=== PATIENT | female | born 1990 | race African-American/Black ===

== ENCOUNTER 2020-04-24 17:11 | Outpatient (CLI) | payer OTHER, SELFPAY ==
--- NOTE | ~2020-04-24 | US_ITS ---
EXAMINATION: US pelvic complete w TV DATE: 04/24/2020 17:41 INDICATION: Pelvic pain Comparison:No prior studies for comparison. TECHNIQUE: Multiple transabdominal and endovaginal sonographic images of the pelvis performed. FINDINGS: The uterus measures 10.7 x 4.2 x 6.3 cm. The endometrial complex measures 12 mm. The right ovary measures 3.9 x 2.5 x 2.4 cm and the left ovary measures 5.2 x 2.5 x 3.6 cm. There ar e small follicles in each ovary. Normal doppler signal in both ovaries. There is no free fluid in the pelvis. There are no abnormal masses seen on either side. IMPRESSION: 1. Enlarged uterus with endometrial thickening measuring 12 mm. Reviewed, dictated and finalized at location A. PRESS OPERATOR
== END 2020-04-24 17:12 | disposition home or self-care (01) ==
PROVIDERS: Visit Provider Student in an Organized Health Care Education/Training Program
DX: R10.2 Pelvic and perineal pain (principal)
CPT/HCPCS: 76830; 76856

== ENCOUNTER → 2021-03-01 09:46 | Outpatient (CLI) | payer OTHER, SELFPAY ==
--- NOTE | ~2021-03-01 | MR_ITS ---
EXAMINATION: MR cervical spine wo con EXAM DATE: 03/01/2021 12:39 INDICATION: Cervical radiculopathy, left-sided neck pain radiating to left shoulder. TECHNIQUE: Multi-sequential, multiplanar MR images of the cervical spine were obtained without contra st. Axial T2, axial T2 MERGE sequence. Sagittal T1, T2, T2 fat saturation images also obtained. Th ere is no prior study for comparison. FINDINGS: The vertebral bodies are aligned in the AP dimension. Vertebral body and disc heights are well-maintained. There are no suspicious marrow signal abnormalities. The spinal cord signal intensit y and intrinsic morphology is normal. Cervicomedullary junction is normal in appearance. Paraspinal s oft tissue is unremarkable. Right thyroid nodule which may be predominantly cystic measuring 1.6 cm; consider ultrasound for risk stratification. Level by level evaluation: C2-C3: Disc does not extend beyond the endplate margin. Uncovertebral joint arthropathy: None. Facet joint arthropathy: Mild. Neural foraminal stenosis: No stenosis. Central canal stenosis: No stenosis. C3-C4: Disc does not extend beyond the endplate margin. Uncovertebral joint arthropathy: None. Facet joint arthropathy: Mild. Neural foraminal stenosis: No stenosis. Central canal stenosis: No stenosis. C4-C5: Disc does not extend beyond the endplate margin. Uncovertebral joint arthropathy: Mild. Facet joint arthropathy: Mild. Neural foraminal stenosis: No stenosis. Central canal stenosis: No stenosis. C5-C6: Disc does not extend beyond the endplate margin. Uncovertebral joint arthropathy: Mild. Facet joint arthropathy: Mild. Neural foraminal stenosis: No stenosis. Central canal stenosis: No stenosis. C6-C7: Disc does not extend beyond the endplate margin. Uncovertebral joint arthropathy: Mild. Facet joint arthropathy: Mild. Neural foraminal stenosis: No stenosis. Central canal stenosis: No stenosis. C7-T1: Disc does not extend beyond the endplate margin. Uncovertebral joint arthropathy: None. Facet joint arthropathy: Mild. Neural foraminal stenosis: No stenosis. Central canal stenosis: No stenosis. IMPRESSION: 1. Incidental right thyroid nodule could be cystic but recommend ultrasound. 2. Mild arthropathy. No stenosis. Reviewed, dictated and finalized at location G. AZZO GRINDER
== END ==
PROVIDERS: Visit Provider Nurse Practitioner Adult Health
DX: M54.12 Radiculopathy, cervical region (principal); E04.1 Nontoxic single thyroid nodule; M12.88 Other specific arthropathies, not elsewhere classified, other specified site
CPT/HCPCS: 72141

== ENCOUNTER → 2021-03-22 08:16 | Outpatient (CLI) | payer OTHER, SELFPAY ==
--- NOTE | ~2021-03-22 | US_ITS ---
US thyroid INDICATION: Nontoxic cecal thyroid nodule seen on MRI examination. TECHNIQUE: Real-time sonographic images of the thyroid gland were obtained. COMPARISON: MRI dated 03/01/2021 FINDINGS: The right thyroid lobe measures 6.7 x 2.1 x 2.2 cm. The left thyroid lobe measures 5 x 1.5 x 1.9 cm. There is normal echotexture and echogenicity throughout the thyroid gland. In the right lo be there is a solid hyperechoic mass measuring 2.1 x 1.5 x 1.8 cm which is wider than tall, smoothly marginated with multiple small punctate echogenic foci, possibly calcifications, TR 4 classification, moderately suspicious. Normal vascular flow is present. IMPRESSION: 1. Right thyroid mass measuring up to 2.1 cm, TR 4. Ultrasound-guided fine-needle aspiration biopsy recommended. Reviewed, dictated and finalized at location A. IMEDIA DEVELOPER IMPRESSION: 1. Right thyroid mass measuring up to 2.1 cm, TR 4. Ultrasound-guided fine-nee dle aspiration biopsy recommended.
== END ==
PROVIDERS: PCP Physician Assistant; Visit Provider Physician Assistant
DX: E04.1 Nontoxic single thyroid nodule (principal)
CPT/HCPCS: 76536

== ENCOUNTER 2021-04-18 13:48 | Outpatient (CLI) | payer OTHER, SELFPAY ==
--- NOTE | ~2021-04-18 | US_ITS ---
EXAMINATION: US FNA w image guidance DATE: 04/18/2021 14:32 INDICATION: Nontoxic goiter. TECHNIQUE: The procedure and its benefits and risks were discussed with the patient. Risks specifically discusse d included bleeding. The patient verbalized understanding of the risks and agreed to proceed. The nec k was prepped and draped in the usual sterile manner. 1% lidocaine was used for local anesthesia. 5 passes were made with a 25G needle into the lesion under ultrasound guidance. There were no immedia te complications. The patient understood to call the ordering physician for results after a week and a half and verbalized that understanding. FINDINGS: Grayscale ultrasound images demonstrate needles advanced into a 2.0 cm nodule in right thyroid lobe f or biopsy. IMPRESSION: 1. Ultrasound-guided fine needle aspiration of a right thyroid nodule. Reviewed, dictated and finalized at location A. ER TEACHER
== END 2021-04-18 13:49 | disposition home or self-care (01) ==
LOC: ANHIMG 13:51
PROVIDERS: PCP Physician Assistant; Visit Provider Physician Assistant
DX: E04.9 Nontoxic goiter, unspecified (principal)
CPT/HCPCS: 10005; 88173; 88305

== ENCOUNTER → 2021-08-11 14:45 | Outpatient (CLI) | payer OTHER, SELFPAY ==
--- NOTE | ~2021-08-11 | US_ITS ---
US thyroid INDICATION: Multinodular goiter follow-up. Previous benign right thyroid mass biopsy. TECHNIQUE: Real-time sonographic images of the thyroid gland were obtained. COMPARISON: Ultrasound dated 03/22/2021 FINDINGS: The right thyroid lobe measures 6.6 x 2 x 2.2 cm. The left thyroid lobe measures 5 x 1.5 x 1.9 cm. There is normal echotexture and echogenicity throughout the thyroid gland. There is a stable solid right thyroid mass measuring 2.1 x 1.5 x 1.7 cm. This was previous with the biopsy-proven britney gn. No other masses are identified. There is increased vascularity of both lobes as well as the IMPRESSION: 1. Stable right thyroid mass measuring 2.1 cm maximum dimension, previously biopsy-proven benign. Reviewed, dictated and finalized at location A. IMPRESSION: 1. Stable right thyroid mass measuring 2.1 cm maximum dimension, previously bi opsy-proven benign.
== END ==
PROVIDERS: PCP Internal Medicine Endocrinology, Diabetes & Metabolism; Visit Provider Internal Medicine Endocrinology, Diabetes & Metabolism
DX: E04.2 Nontoxic multinodular goiter (principal)
CPT/HCPCS: 76536

== ENCOUNTER 2022-02-10 12:30 | Outpatient (NON) | payer OTHER, SELFPAY | END 2022-02-10 12:31 | disposition home or self-care (01) | LOC: ANHLAB 02-11 12:35 | PROVIDERS: Visit Provider Nurse Practitioner | DX: L72.0 Epidermal cyst (principal) | CPT/HCPCS: 88304 ==

== ENCOUNTER → 2022-02-11 13:01 | Outpatient (CLI) | payer OTHER, SELFPAY ==
--- NOTE | ~2022-02-11 | US_ITS ---
EXAMINATION: US thyroid DATE: 02/11/2022 13:45 INDICATION: Multinodular goiter TECHNIQUE: Multiple ultrasound images of the thyroid were obtained. COMPARISON: None. FINDINGS: The right thyroid lobe measures 6.8 x 2.3 x 2.1 cm. The left thyroid lobe measures 4.9 x 1.6 x 1.8 c m. 2.3 cm wider than tall hypoechoic and hypervascular predominantly solid nodules at the inferior r ight thyroid lobe with smooth margins and without internal echogenic foci (TI-RADS 4, moderately susp icious , FNA if >=1.5 cm, annual followup is >=1 cm). There is normal echotexture, echogenicity and v ascular flow throughout the remainder of the thyroid gland. IMPRESSION: 1. 2.3 cm TI RADS 4 right thyroid nodule for which ultrasound-guided biopsy would be recommended. Reviewed, dictated and finalized at location A. Y LEARNING TEACHER IMPRESSION: 1. 2.3 cm TI RADS 4 right thyroid nodule for which ultrasound-guided biopsy wou ld be recommended.
== END ==
PROVIDERS: PCP Physician Assistant; Visit Provider Internal Medicine Endocrinology, Diabetes & Metabolism
DX: E04.2 Nontoxic multinodular goiter (principal)
CPT/HCPCS: 76536

== ENCOUNTER → 2022-08-15 11:47 | Outpatient (CLI) | payer OTHER, SELFPAY ==
--- NOTE | ~2022-08-15 | US_ITS ---
EXAMINATION: US thyroid DATE: 08/15/2022 12:06 INDICATION: Multinodular goiter TECHNIQUE: Multiple ultrasound images of the thyroid were obtained. COMPARISON: 02/11/2022 FINDINGS: The right thyroid lobe measures 5.5 x 2.3 x 2.2 cm. The left thyroid lobe measures 4.4 x 1.9 x 1.6 c m. No significant change in a 2.1 cm wider than tall solid hypoechoic nodule with smooth margins and without internal echogenic foci. (TI-RADS 4, moderately suspicious , FNA if >=1.5 cm, annual followup is >=1 cm) in the thyroid. Small 1.3 cm TI RADS 4 left thyroid nodule with similar imaging features there is a second smaller 1.3 cm TI RADS 4 nodule with similar imaging features in the superior left thyroid. There is normal echotexture, echogenicity and vascular flow throughout the thyroid gland. IMPRESSION: 1. A couple TI RADS 4 bilateral thyroid nodules the largest on the right unchanged and with previous biopsy demonstrating Follicular epithelial cells and colloid compatible with benign follicular nodul e (TBS diagnostic category II). The smaller 1.3 cm left thyroid nodule appears new but remains below size criteria for biopsy and would recommend continued annual ultrasound follow-up. Reviewed, dictated and finalized at location A. IMPRESSION: 1. A couple TI RADS 4 bilateral thyroid nodules the largest on the right unchan ged and with previous biopsy demonstrating Follicular epithelial cells and col loid compatible with benign follicular nodule (TBS diagnostic category II). Th e smaller 1.3 cm left thyroid nodule appears new but remains below size criteri a for biopsy and would recommend continued annual ultrasound follow-up.
== END ==
PROVIDERS: PCP Physician Assistant; Visit Provider Internal Medicine Endocrinology, Diabetes & Metabolism
DX: E04.2 Nontoxic multinodular goiter (principal)
CPT/HCPCS: 76536

== ENCOUNTER 2022-12-04 10:09 | Outpatient (CLI) | payer OTHER, SELFPAY ==
--- NOTE | 2022-12-08 14:16 | WPDHOLTEREM ---
Holter/Event Monitor Holter/Event Monitor Date of procedure: 12/04/22 Holter/Event Procedure: 24 Hr Holter Monitor Indications: Palpitations Conclusion: 1. 24 hour holter monitor on 12/04/22. 2. Underlying rhythm is sinus rhythm. HR range 63-146 bpm; average HR 88 bpm. 3. There are 828 premature supraventricular complexes. No supraventricular tachycardia. 4. No premature ventricular complexes. No ventricular tachycardia. 5. No sinoatrial or atrioventricular blocks. No significant pauses greater than 2 seconds. 6. No symptoms available for correlation.
== END 2022-12-04 10:10 | disposition home or self-care (01) ==
PROVIDERS: PCP Physician Assistant; Visit Provider Advanced Practice Midwife
DX: R00.2 Palpitations (principal)
CPT/HCPCS: 93225; 93226

== ENCOUNTER 2023-05-28 06:24 | Inpatient (IN) | payer OTHER, SELFPAY ==
[2023-05-28] VITALS (95 sets, daily range): BP systolic 90–179; BP diastolic 52–140; PULSE 58–150; RESP 18; TEMP 36.3–37.2; O2SAT 96–100; BMI 28.0
--- NOTE | 2023-05-28 06:40 | WPDANESEPP ---
Anes - Eval Pre Procedure Procedure: labor epidural Date/Time: 05/28/23 06:40 Surgeon: elizabeth Preop Diagnosis: pain during labor Pre Op Diagnosis: IOL Patient Data Age: 33 Gender: F Height: Weight: Allergies Allergy/AdvReac Type Severity Reaction Status Date / Time No Known Allergies Allergy Verified 02/04/23 14:12 Home Medications Medication Instructions Recorded Confirmed Type vitamin#30 30 mg iron-10 1 cap PO 02/04/23 History mg iron-folic acid 1 mg-omg3 capsule Patient hx anesthesia problems: none Family hx anesthesia problems: none Results Review: All pre-operative results and documents have been reviewed as part of the pre-operative evaluation. 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
--- NOTE | 2023-05-28 07:10 | LDADM ---
This patient, Nona Gutierres, was admitted to Labor/Delivery/Recovery 103 on 05/28/23 at 06:24. Plans for labor, pain management and were discussed with patient. Patient/family oriented to hospital policies and general routines including ID bracelet, bed and alarms, visiting hours, pain management, procedures, bathroom and other care routines, personal items, smoking policy, room service/diet and guest tray routines, security routines, and visiting hours. Patient/Family are encouraged to report perceived risks to care and to ask questions if they do not understand what they are told or what they should do. See OBIX for further documentation.
[2023-05-28 07:12] LABS: Basophils Percent Auto 0.4 % (0.2-1.2); Eosinophils Absolute Auto 0.1 K/mm3 (0-0.3); Hematocrit 39.5 % (37.0-47.0); Immature Granulocyte Absolute 0.12 K/mm3 (0.00-0.031); Immature Granulocyte Percent A 1.2 % (0-0.5); Lymphocytes Absolute Auto 1.97 K/mm3 (0.9-3.2); Mean Corpuscular HGB Conc 32.9 g/dl (32-36); Mean Corpuscular Hemoglobin 30.2 pg (26-34); Mean Corpuscular Volume 91.6 fl (80-100); Mean Platelet Volume 12.2 fl (7.4-10.4); Monocytes Absolute Auto 0.6 K/mm3 (0.1-0.6); Monocytes Percent Auto 6.5 % (2.6-8.5); Neutrophils Percent Auto 70.9 % (45.5-73.1); Platelet Count Result 154 k/mm3 (150-375); Red Blood Count 4.31 M/mm3 (4.2-5.4); Red Cell Distribution Width 13.8 % (11.5-14.5); White Blood Count 9.8 K/mm3 (4.5-10.0)
--- NOTE | 2023-05-28 07:37 | WPDOBADMIT ---
Obstetrics - Admit Note Admission Note: record reviewed. No pertinent additions to the history and/or any subsequent changes in the physical findings that are not consistent with the expected course of the were found. Additions to the history and/or subsequent changes in the physical findings follow. TOLAC, SVE /-2 AROM moderate amount of clear odorless fluid, discussed IUPC, anticipate vaginal delivery
[2023-05-28 12:24] LABS: Rapid Plasma Reagin Non-Reactive (NonReactive)
[2023-05-28] MEDS: LACTATED RINGERS 1,000 ML 125 ML IV CONT (14:03)
[2023-05-28] MEDS: fentaNYL CITRATE INJ (*CRX) 100 MCG/2 ML VIAL 50 MCG IV PUSH (14:08)
[2023-05-28] MEDS: OXYTOCIN 30 UNITS/NS 500 ML 30 UNITS/500 ML BAG 999 UNITS IV CONT (14:56)
--- NOTE | 2023-05-28 15:08 | PM.OBPRVD ---
OB - Vaginal Delivery Note Procedure Delivery date: 05/28/23 Induction method: AROM Delivery monitor: External FHT and Internal Uterine Route of delivery: Episiotomy description: None Laceration Description: None Specimen: No Quantitative Blood Loss (ml): 100 Anesthesia type: None Disposition: Floor [place] Baby Date of : 05/28/23 Time of : 14:55 Weeks of gestation at delivery: 40 gender: Female Weight (pounds): 9 Weight (ounces): 12 presentation: vertex position: Right Occiput Anterior Placenta delivery description: Spontaneous Cord Vessel Description: 3 Vessels score one minute: 8 score five minutes: 9 Narrative: anterior shoulder unable to deliver easily, danie and suprapubic pressure unable to resolve, reached in to posterior arm, compound presentation was able to rotate shoulder and deliver posterior arm, rest of baby delivered easily, baby moving all extremities
[2023-05-28] MEDS: IBUPROFEN 600 MG TABLET PO ×2 (15:23→21:21)
[2023-05-28] MEDS: ACETAMINOPHEN 325 MG TABLET 650 MG PO ×2 (15:24→21:22)
[2023-05-28] MEDS: WITCH HAZEL 40 PADS 1 PAD TOPICAL (15:24)
[2023-05-28] MEDS: BENZOCAINE 20% AER SPR (*SP) 56 GM CAN 1 SPRAY TOPICAL (15:24)
[2023-05-28] MEDS: OXYTOCIN 30 UNITS/NS 500 ML 30 UNITS/500 ML BAG 125 UNITS IV CONT (15:29)
--- NOTE | 2023-05-28 17:40 | OBPPTRN ---
Patient transferred to post room #281 via wheelchair. Support person present. Oriented to unit, room, information board, rooming in, admission packet and security measures. Patient verbalizes understanding.
[2023-05-28] MEDS: POLYSACCHARIDE IRON COMPLEX 150 MG CAPSULE PO (21:00)
[2023-05-29 02:18] VITALS: BP 101/66; PULSE 98; RESP 18; TEMP 36.8; O2SAT 100
--- NOTE | 2023-05-29 02:20 | PC.NURSE ---
Pt up standing at side of bed without difficulty. Catherine pads changed. SCD's removed at this time as pt would like a break from them. Pt placed back into bed. Will continue to monitor.
[2023-05-29 04:30] VITALS: BP 96/58; PULSE 76; RESP 18; TEMP 36.8
--- NOTE | 2023-05-29 05:54 | P.PNOB_ITS ---
OB - PN: Subj Subjective Date/time seen: 05/29/23 05:54 Patient comments: no complaints, pain well controlled, incisional pain, tolerating diet and flatus present OB - PN: Obj Data Labs 05/28/23 06:45 Labs: Laboratory Results - last 24 hr 05/28/23 06:45 WBC 9.8 RBC 4.31 Hgb 13.0 Hct 39.5 MCV 91.6 MCH 30.2 MCHC 32.9 RDW 13.8 Plt Count 154 MPV 12.2 H Immature Gran % (Auto) 1.2 H Neut % (Auto) 70.9 Lymph % (Auto) 20.0 [place] % (Auto) 6.5 Eos % (Auto) 1.0 Baso % (Auto) 0.4 Lymph # (Auto) 1.97 [place] # (Auto) 0.6 Eos # (Auto) 0.1 Baso # (Auto) 0.0 Abs Immat Gran (auto) 0.12 H Absolute Neuts (auto) 7.0 H Absolute Nucleated RBC 0.000 Nucleated RBC % 0.0 RPR Non-reactive Blood Type O Positive Antibody Screen Negative OB - PN A/P Plan day: 1 Plan: routine care Comments: No problems, routine care Time Spent With Patient Time: Total time spent is greater than 50% in coordination of care (as documented) at patient's floor/unit and/or counseling patient: Exam Const: General: comfortable, no acute distress and alert Resp: Effort & Inspection: normal respiratory effort Auscultation: no crackles, no rales and no rhonchi Cardio: Rate: regular rate Heart sounds: no click, no murmurs and no rubs GI: Inspection: non-distended GI Palp: No Tenderness to palpation present (GI) Auscultation: normal bowel sounds Other: Incision - CDI Extrem: General: normal to inspection, no pedal edema and no calf tenderness
[2023-05-29 05:55] LABS: Hematocrit 36.1 % (37.0-47.0); Hemoglobin 11.7 g/dL (12.0-15.0)
[2023-05-29 09:06] VITALS: BP 97/66; PULSE 74; RESP 16; TEMP 36.3
[2023-05-29] MEDS: ACETAMINOPHEN 325 MG TABLET 650 MG PO (09:06)
[2023-05-29] MEDS: BENZOCAINE 20% AER SPR (*SP) 56 GM CAN 1 SPRAY TOPICAL (09:06)
[2023-05-29] MEDS: DOCUSATE SODIUM 100 MG CAPSULE PO (09:06)
[2023-05-29] MEDS: WITCH HAZEL 40 PADS 1 PAD TOPICAL (09:06)
[2023-05-29] MEDS: MULTIVIT/MIN/PREN/FOL AC/IRON TABLET 1 TAB PO (09:06)
[2023-05-29 19:15] VITALS: BP 96/59; PULSE 72; RESP 18; TEMP 36.8
[2023-05-29] MEDS: IBUPROFEN 600 MG TABLET PO (19:15)
[2023-05-30] MEDS: ACETAMINOPHEN 325 MG TABLET 650 MG PO (04:02)
[2023-05-30] MEDS: DOCUSATE SODIUM 100 MG CAPSULE PO (07:25)
[2023-05-30] MEDS: IBUPROFEN 600 MG TABLET PO (07:25)
[2023-05-30] MEDS: MULTIVIT/MIN/PREN/FOL AC/IRON TABLET 1 TAB PO (07:25)
[2023-05-30 07:40] VITALS: BP 91/62; PULSE 77; RESP 18; TEMP 37.1; O2SAT 98
--- NOTE | 2023-05-30 10:33 | PM.OBPNVD ---
OB - PN: Subj Subjective Date/time seen: 05/30/23 10:33 Patient comments: no complaints, pain well controlled and tolerating diet OB - PN: Obj Data Labs 05/29/23 04:25 OB - PN A/P Plan day: 2 Plan: routine care and discharge home Time Spent With Patient Time: Total time spent is greater than 50% in coordination of care (as documented) at patient's floor/unit and/or counseling patient: Exam Const: General: comfortable and no acute distress Resp: Effort & Inspection: normal respiratory effort Auscultation: no rales, no rhonchi and no wheezes Cardio: Rate: regular rate Heart sounds: no click, no murmurs and no rubs GI: GI Palp: Yes Soft to palpation and No Tenderness to palpation present (GI) Auscultation: normal bowel sounds Extrem: General: normal to inspection, no pedal edema and no calf tenderness
[2023-05-31 10:47] VITALS: BP 95/60; PULSE 85; RESP 18; TEMP 37.1; O2SAT 98
--- NOTE | 2023-06-24 21:24 | PM.OBDSVD ---
DS: Admitting Diagnosis Discharge Date 05/30/23 Admitting Diagnosis term DS: Discharge Diagnosis Discharge Diagnosis (1) Term delivered: Code(s): O80 - Encounter for full-term uncomplicated delivery Status: Acute OB - DS: Summary OB Procedures : None OB Procedures Intrapartum: Spontaneous Vag Delivery OB Procedures: : None Peripartum Data Laceration Description: None Episiotomy description: None Time Spent with Patient Time attestation: Total time spent providing and/or coordinating discharge services: Discharge Plan Discharge Consulting providers: Blanca Putnam; Deidre Mendoza Discharging Clinician: Chris Duran Patient Disposition: Home, Self-Care Activity: pelvic rest Diet: regular Discharge Instructions: Education: Mom and Baby Guide Given to: Mother Follow-Up: Call your delivering provider's office for an appointment to be seen in: 6 Weeks Mom and baby should come to the [facility] for the follow-up appointment. Appointment Date/Time: May 31, 2023 at 10:00 am What to expect at your follow-up visit: Physical Assessment Call [phone] if you are unable to keep your appointment time. BREAST CARE: * Wear a snug supportive bra. * For engorgement discomfort: Breast Feeding: * Apply warm moist washcloths * Express milk as needed to relieve engorgement * Wear loose clothing Bottle Feeding: * May apply ice packs * For sore nipples: * Identify correct latch-on * Apply warm moist washcloths before and after nursing * Air dry nipples after nursing * May apply Lansinoh cream to nipples EPISIOTOMY/PERINEAL CARE: * Until bleeding stops, use your mark bottle after urinating * Change your pad frequently throughout the day * You may take sitz baths several times a day (fill your bathtub with warm water and soak for 20 minutes.) Do NOT bathe in the water * No tub baths until seen by your physician - You may shower ACTIVITY: * Rest as much as possible. * Do not exercise or lift anything heavier than your baby (such as laundry or other children.) * Avoid stairs or driving as much as possible. * Do not put anything into the vagina. No douching, tampons, or sexual activity until seen by physician. NOTIFY PHYSICIAN IF YOU HAVE ANY QUESTIONS OR IF ANY OF THE FOLLOWING SYMPTOMS OCCUR: * If your episiotomy or incision becomes red, swollen, or more painful than what you have experienced in the hospital. * If your vaginal bleeding becomes foul smelling. * If your vaginal bleeding becomes more heavy than a period or if your bleeding changes from pink to bright red. However, you may pass an occasional walnut-sized clot once or twice for the first week . * If you experience a sharp, shooting pain in you calves. * If you discover a hard, reddened area on your breast or if you experience flu-like symptoms. DIET: * Eat regular, well-balanced meals. * Drink plenty of fluids daily. If , drink to thirst. Patient Instructions: Antibiotic Form Stand Alone Forms: General Discharge Information Follow-up/Referrals: Chris Duran MD [Physician] - Discharge Medications: Continued PNV #[id number] 30 mg iron-10 mg iron-1 mg capsule 1 cap PO DAILY Date of admission: 05/28/23 06:24 Primary Care Provider: NgocAvelina Admitting Provider: Chris Duran Attending physician on admission: Chris Duran Condition: Stable
== END 2023-05-30 14:20 | disposition home or self-care (01) | DRG 806 ==
LOC: ANHLDR 06:27 → ANHOB2 17:52
PROVIDERS: Admitting Provider Obstetrics & Gynecology; PCP Physician Assistant; Referring Provider Advanced Practice Midwife; Visit Provider Obstetrics & Gynecology
DX: O34.219 Maternal care for unspecified type scar from previous cesarean delivery (principal); O60.20X0 Term delivery with preterm labor, unspecified trimester, not applicable or unspecified; Z37.0 Single live birth; O32.6XX0 Maternal care for compound presentation, not applicable or unspecified; Z3A.40 40 weeks gestation of pregnancy
CPT/HCPCS: 36415; 85014; 85018; 85025; 86592; 86850; 86900; 86901; A9270; J2590; J3010; J7120

== ENCOUNTER 2023-07-23 15:51 | Outpatient (CLI) | payer OTHER, SELFPAY ==
--- NOTE | ~2023-07-23 | US_ITS ---
US thyroid INDICATION: Multinodular goiter. Previous benign finding or aspiration biopsies. TECHNIQUE: Real-time sonographic images of the thyroid gland were obtained. COMPARISON: Comparison to multiple prior studies sequentially, with oldest reviewed study dated 06/2021. FINDINGS: The right thyroid lobe measures 6.5 x 2.4 x 2.3 cm. The left thyroid lobe measures 5 x 1.4 x 1.8 cm. There is a solid hypoechoic circumscribed right thyroid mass with increased vascularity. T his mass measures 2.5 x 1.9 x 1.9 cm, slightly increased size compared with prior examination. Mass i s wider than tall. Smoothly marginated. No internal echogenic foci, TR 4. No discrete mass identified in the left thyroid lobe on current study. Normal vascular flow is present. IMPRESSION: 1. Slightly increased size of 2.5 cm right thyroid mass, TR 4. This was previously biopsy-proven yanira ign. Reviewed, dictated and finalized at location B. IMPRESSION: 1. Slightly increased size of 2.5 cm right thyroid mass, TR 4. This was previo usly biopsy-proven benign.
== END 2023-07-23 15:52 ==
LOC: MICIMG 15:52
PROVIDERS: PCP Physician Assistant; Visit Provider Internal Medicine Endocrinology, Diabetes & Metabolism
DX: E04.2 Nontoxic multinodular goiter (principal)
CPT/HCPCS: 76536

== ENCOUNTER 2024-10-11 16:21 | Outpatient (CLI) | payer OTHER, SELFPAY ==
--- NOTE | ~2024-10-11 | US_ITS ---
US thyroid INDICATION: Thyroid goiter TECHNIQUE: Real-time sonographic images of the thyroid gland were obtained. COMPARISON: Comparison to multiple prior studies sequentially, with oldest reviewed study dated 02/11/2022. FINDINGS: The right thyroid lobe measures 5.2 x 2.3 x 2.3 cm. The left thyroid lobe measures 4.3 x 1.6 x 1.5 cm. In the right thyroid lobe there is a solid hypoechoic wider than tall circumscribed mass without echogenic foci, TR 4. There is internal vascularity. This mass was previously biopsy-proven benign IMPRESSION: 1. Stable to decreased size of right thyroid mass measuring 2.2 cm, TR 4, previously biopsy-proven benign. Reviewed, dictated and finalized at location O. IMPRESSION: 1. Stable to decreased size of right thyroid mass measuring 2.2 cm, TR 4, prev iously biopsy-proven benign.
== END 2024-10-11 16:22 | disposition home or self-care (01) ==
LOC: MICIMG 16:22
PROVIDERS: PCP Physician Assistant; Visit Provider Internal Medicine Endocrinology, Diabetes & Metabolism
DX: E04.2 Nontoxic multinodular goiter (principal)
CPT/HCPCS: 76536

== ENCOUNTER 2024-11-15 12:28 | Outpatient (RCR) | payer OTHER, SELFPAY ==
--- OUTSIDE RECORDS SUMMARY | 2024-11-15 12:33 | XMS_ITS | Clinical Summary ---
Author Organization [facility] [address] - [address] [facility] [address] [place] [address] Phone Care Team Providers Care Meat Passer Name Role Phone Unavailable Primary Care Provider Unavailabl e Social History Tobacco Use Types Packs/Day Years Used Date Smoking Tobacco: Never Assessed Comments Unknown Sex and Gender Information Value Date Recorded Sex Assigned at Not on file Legal Sex Female 4:37 PM CDT Gender Identity Not on file Sexual Orientation Not on file Plan of Treatment Health Maintenance Due Date Last Done Comments DTAP/TDAP/TD VACCINES (1 - Tdap) 02/10/2007 HEPATITIS B VACCINES (1 of 3 - 19+ 3-dose series) 01/16 HPV/Cotest (21-29) 02/10/2009 HPV VACCINES (1 - 3-dose SCDM series) 02/10/2015 CERVICAL CANCER SCREENING 02/10/2018 HPV/Cotest (30-65) 02/10/2018 PAP SMEAR 02/10/2018 INFLUENZA VACCINE (#1) 2024 Insurance [employer] PPO [id number]
--- OUTSIDE RECORDS SUMMARY | 2024-11-15 12:33 | XMS_ITS | Clinical Summary ---
Author Organization [facility] Address [address] [place] [id number] Care Team Providers Care Scada Engineer Name Role Phone Unavailable Primary Care Provider Unavailabl e Social History Tobacco Use Types Packs/Day Years Used Date Smoking Tobacco: Never Assessed Comments Unknown Sex and Gender Information Value Date Recorded Sex Assigned at Not on file Legal Sex Female 8:11 PM CDT Gender Identity Not on file Sexual Orientation Not on file Last Filed Vital Signs Vital Sign Reading Time Taken Comments Blood Pressure 112/70 02/09/2014 1:51 PM INSTALLATION SERVICE REPRESENTATIVE Pulse 72 02/09/2014 1:51 PM INSTALLATION SERVICE REPRESENTATIVE Temperature - - Respiratory Rate - - Oxygen Saturation - - Inhaled Oxygen Concentration - - Weight 66.4 kg (146 lb 5 oz) 02/09/2014 1:51 PM INSTALLATION SERVICE REPRESENTATIVE Height - - Body Mass Index - - Plan of Treatment Health Maintenance Due Date Last Done Comments Cervical Cancer Screening Pa p Smear (Age 30 to 64) Every 3 Years 1988 Annual Physical 02/10/1991 Hepatitis C 02/10/2006 DTaP, Tdap and Td Vaccines ( 1 - Tdap) 02/10/2007 Hepatitis B Vaccines (1 of 3 - 19+ 3-dose series) 02/10/2007 HPV Vaccines (1 - 3-dose SCD M series) 02/10/2015 Cervical Cancer Screening Pa p with HPV Testing (Age 30 to 64) Every 5 Years 02/10/2018 Cervical Cancer Screening with HPV 02/10/2018 COVID-19 Vaccine (2023-2 5 season) 2024 Meningococcal B Vaccine Aged Out No l onger eligible based on patient's age to complete this topic Meningococcal Vaccine Aged Out No michael myke eligible based on patient's age to complete this topic Pneumococcal Vaccine: Pediat rics (0 to 5 Years) and At-Risk Patients (6 to 49 Years) Aged Out No longer eligible b ased on patient's age to complete this topic RSV Immunizations Under 20 Months Aged Out No longer eligible based on patient's age to complete this topic
--- OUTSIDE RECORDS SUMMARY | 2024-11-15 12:33 | XMS_ITS | Clinical Summary ---
Author Organization [facility] Physician Office Building [address] [place] [id number] Care Team Providers Care Drafter Apprentice Name Role Phone Avelina Grossman Primary Care Pr ovider Allergies No known active allergies Medications vit 23-[id number]-d horn 27mg iron- 800 mcg-250 mg capsule Take by mouth Active cholecalciferol (VITAMIN D-3) 84218 unit capsule Take 1 capsule (10,000 Units total) by mouth daily Active Active Problems Problem Noted Date Diagnosed Date Multinodular goiter 07/14/2023 Assessment & Plan (07/14/2023 1:03 PM CDT): Chronic, unknown status Patient has history of multinodular goiter diagnosed 2021 Status post right dominant thyroid nodule FNA biopsy in the past with benign cytology Last thyroid ultrasound was done in August 2022 , showed overall stable thyroid nodule No compressive symptoms Plan to repeat another ultrasound in August 2023 Further plans after reviewing repeat thyroid ultrasound findings Check TSH Resolved Problems Problem Noted Date Diagnosed Date Resolved Date Thyroiditis 06/20/2012 07/14/2023 Overview (05/22/2016): Thyroiditis Encounters Date Type Department Care Team Description 08/23/2024 Results Follow-Up [facility] [id number] [place] [address] [address], [place] [address] Thierno Monteiro MD Thyroid Function [place] 08/21/2024 9:00 AM CDT Office Visit [facility] Endocr[facility]ology [address] [place] [address] Thierno Monteiro MD Multinodular goiter (Primary Dx) 08/21/2024 Orders Only [facility] [id number] [place] [address] [address] [place] [id number] Thierno Monteiro MD from Last 3 Months Family History Medical History Relation Name Comments Thyroid disease Maternal Grandmother Breast cancer Mother Heart disease Mother Other Mother thyroid; Thyroid disease Mother Relation Name Status Comments Maternal Grandmother Mother Social History Tobacco Use Types Packs/Day Years Used Date Smoking Tobacco: Never Smokeless Tobacco: Never Tobacco Cessation:Counseling Given: Not Answered Alcohol Use Standard Drinks/Week Comments Yes 0 (1 standard drink = 0.6 oz pur e alcohol) PHQ-2 Answer Date Recorded PHQ-2 Total Score (If total score is 3 or more points, staff should administer the PHQ-9) 0 07/14/2023 Comments No Sex and Gender Information Value Date Recorded Sex Assigned at Not on file Legal Sex 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 Gender Identity Not on file Sexual Orientation Not on file Obstetrics History Last Filed Vital Signs Vital Sign Reading Time Taken Comments Blood Pressure 112/70 08/21/2024 9:10 AM CDT Pulse 80 08/21/2024 9:10 AM CDT Temperature 37 C (98.6 F) 03/18/2024 10:05 AM DIESEL SERVICE TECHNICIAN Respiratory Rate 15 08/21/2024 9:10 AM CDT Oxygen Saturation 99% 03/18/2024 10:05 AM DIESEL SERVICE TECHNICIAN Inhaled Oxygen Concentration - - Weight 68.5 kg (151 lb) 08/21/2024 9:10 AM CDT Height 172.7 cm (5' 8) 08/21/2024 9:10 AM CDT Body Mass Index 22.96 08/21/2024 9:10 AM CDT Plan of Treatment Health Maintenance Due Date Last Done Comments Cervical Cancer Screening 1988 Hepatitis C Screening 1988 Varicella Vaccines (1 of 2 - 13+ 2-dose series) 02/10/2001 Hepatitis B Screening 02/10/2006 Regular Well Visit/Exam 18-64 02/10/2006 HPV Vaccines (1 - 3-dose SCDM series) 02/10/2015 Depression Screening 07/13/2024 07/14/2023 Covid-19 Vaccine (3 - season) 2024 05/06/2020, 04/04/2020 Influenza Vaccine (#1) 2024 , 11/21/2021, 12/06/2020, Additional history exists DTaP/Tdap/Td Vaccine (3 - Td or Tdap) 03/26/2033 03/26/2023, 01/22/2019 Pneumococcal vaccine <65 Aged Out No longer eligible based on patient's age to complete this topic Procedures Procedure Name Priority Date/Time Associated Diagnosis Comments THYROID FUNCTION CASCADE Routine 08/21/2024 1:50 PM CDT from Last 3 Months Results * Thyroid Function [place] (08/21/2024 1:50 PM CDT) TSH 1.12 mIU/L [facility] Comment: Reference Range > or = 20 Years 0.40-4.50 Ranges First trimester 0.26-2.66 Second trimester 0.55-2.73 Third trimester 0.43-2.91 08/21/2024 1:50 PM CDT 08/21/2024 1:52 PM CDT us Thierno Sewell MD LAB BLOOD ORDERABLE S Final Result [facility] [address] [place] [address] from Last 3 Months Insurance [facility] H[facility]/PPO Address: [address] [address] Care Teams Drafter Apprentice Relationship Specialty Start Date End Date Avelina Grossman PA PCP - General Physician Manager Housekeeping 04/26/23
--- OUTSIDE RECORDS SUMMARY | 2024-11-15 12:33 | XMS_ITS | Data Portability ---
Author Organization [place] - [facility], Main Office Address [address] [place] [address] Assessment No assessment recorded. Plan of Treatment Reminders Order Date Submit Date Provider Last Modified By Organization Details Last Modified Time Details Appointments None recorded. Lab lipid panel, serum 2022 023 [email or web address] [facility], [address], [place], [address], 3 12:48:24 CBC w/ auto diff 2022 023 LESLY [facility], [address], [place], [address], 3 15:15:14 Referral None recorded. Procedures None recorded. Surgeries None recorded. Imaging None recorded. Medication Orders meloxicam 15 mg tablet 2022 023 [email or web address] [id number], [address] [facility], [place], [id number], 3 21:41:00 Patient TargetsNo targets recorded. Patient InstructionsNo instructions recorded. Reason for Referral None Reported. Results Created Date Observation Date Name Description Value Unit Range Abnormal Flag Note LastModifiedBy Organization Detail LastModifiedTime 06/22/19 22 06/22/2021 TRIIO DOTHY ANIKET E (T3), FREE triiodothyro nine (T3), free 3.1 pg/mL 2.0-4. 4 Not Available [facility] ([facility]) [address] [facility], [place], [address], 06/24/2021 03:07:43 06/22/19 22 06/22/2021 THYRO ID PEROX IDASE (TPO) AB thyroid peroxidase (tpo) Ab 11 IU/mL 0-34 Not Available [facility] ([facility]) [address] [place], [address], 06/24/2021 03:07:42 06/22/19 22 06/22/2021 MAGNE SIUM magnesium 1.9 mg/dL 1.6-2. 3 Not Available [facility] ([facility]) [address] [place], [address], 06/24/2021 03:07:42 06/22/19 22 06/23/2021 THYRO GLOBU ANAMARIA ANTIB JACKELINE thyroglobuli n antibody <1.0 IU/mL 0.0-0. 9 Thyro globu anamaria Antib jackeline measu red by Beckm an Coult er Metho dolog y Not Available [facility] ([facility]) [address] [place], [address], 06/24/2021 03:07:41 06/22/19 22 06/23/2021 LILA W/REF SAVANNAH IF POSIT DANYELL LILA direct negati ve negati ve Not Available [facility] ([facility]) [address] [place], [address], 06/24/2021 03:07:41 06/22/19 22 06/22/2021 VITAM IN D, 25-HY DROXY vitamin D, 25-hydroxy 27.3 NG/mL 30.0-1 00.0 below low normal Vitam in D defic iency has been defin ed by the Insti tute of Medic ine and an Endoc rine Socie ty pract ice guide line as a level of serum 25-OH vitam in D less than 20 ng/mL (1,2) . The Endoc rine Socie ty went on to [facility] er defin e vitam in D insuf ficie ncy as a level betwe en 21 and 29 ng/mL (2). 1. IOM (Inst itute of Medic ine). 2010. Darrela ry refer shakilae riaz es for calci um and D. Amanda michel [place]: [facility] Press . 2. Delaney price [place], Janes ey [place], Ashley off-F errar i SOLER, et al. Evalu ation , treat ment, and preve ntion of vitam in D defic iency : an Endoc rine Socie ty clini brenda pract ice guide line. JCEM. 2010; 96(7) :1911 -30. Not Available [facility] ([facility]) [address] [facility], [place], [address], 06/24/2021 03:07:41 06/22/19 22 06/22/2021 HEMOG LOBIN A1C hemoglobin A1C 5.2 % 4.8-5. 6 Predi abete s: 5.7 - 6.4 Diabe mark: >6.4 Glyce eliza contr ol for adult s with diabe mark: <7.0 Not Available [facility] ([facility]) [address] [facility], [place], [address], 06/24/2021 03:07:40 06/22/19 22 06/22/2021 VITAM IN B12 AND FOLAT E vitamin B12 519 pg/mL 232-12 45 Not Available [facility] ([facility]) [address] [facility], [place], [address], 06/24/2021 03:07:40 06/22/19 22 06/22/2021 VITAM IN B12 AND FOLAT E folate (folic acid), serum 12.7 NG/mL >3.0 A serum folat e zeny ntrat ion of less than 3.1 ng/mL is consi dered to repre sent clini brenda defic iency . Not Available [facility] ([facility]) [address] [facility], [place], [address], 06/24/2021 03:07:40 06/22/19 22 06/22/2021 LIPID PANEL WITH LDL/H DL RATIO cholesterol, total 144 mg/dL 100-19 9 Not Available [facility] ([facility]) [address] [place], [address], 06/24/2021 03:07:39 06/22/19 22 06/22/2021 LIPID PANEL WITH LDL/H DL RATIO triglyceride s 58 mg/dL 0-149 Not Available [facility] ([facility]) [address] [facility], [place], [address], 06/24/2021 03:07:39 06/22/19 22 06/22/2021 LIPID PANEL WITH LDL/H DL RATIO HDL cholesterol 70 mg/dL >39 Not Available [facility] ([facility]) [address] [facility], [place], [address], 06/24/2021 03:07:39 06/22/19 22 06/22/2021 LIPID PANEL WITH LDL/H DL RATIO VLDL cholesterol brenda 12 mg/dL 5-40 Not Available [facility] ([facility]) [address] [facility], [place], [address], 06/24/2021 03:07:39 06/22/19 22 06/22/2021 LIPID PANEL WITH LDL/H DL RATIO LDL chol calc (nih) 62 mg/dL 0-99 Not Available [facility] (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) [address] [place], [address], 06/24/2021 03:07:39 06/22/19 22 06/22/2021 LIPID PANEL WITH LDL/H DL RATIO LDL/HDL ratio 0.9 ratio 0.0-3. 2 LDL/H DL Ratio Men Women 1/2 Avg.R isk 1.0 1.5 Avg.R isk 3.6 3.2 2X Avg.R isk 6.2 5.0 3X Avg.R isk 8.0 6.1 Not Available [facility] ([facility]) [address] [place], [address], 06/24/2021 03:07:39 06/22/19 22 06/22/2021 COMP. METAB OLIC PANEL (14) glucose 76 mg/dL 65-99 Not Available [facility] ([facility]) [address] [place], [address], 06/24/2021 03:07:39 06/22/19 22 06/22/2021 COMP. METAB OLIC PANEL (14) BUN 13 mg/dL 6-20 Not Available [facility] ([facility]) [address] [place], [address], 06/24/2021 03:07:39 06/22/19 22 06/22/2021 COMP. METAB OLIC PANEL (14) creatinine 0.84 mg/dL 0.57-1 .00 Not Available [facility] ([facility]) [address] [place], [address], 06/24/2021 03:07:39 06/22/19 22 06/22/2021 COMP. METAB OLIC PANEL (14) eGFR 94 mL/mi n/1.7 3 >59 Not Available [facility] ([facility]) [address] [place], [address], 06/24/2021 03:07:39 06/22/19 22 06/22/2021 COMP. METAB OLIC PANEL (14) BUN/creatini ne ratio 15 9-23 Not Available [facility] ([facility]) [address] [place], [address], 06/24/2021 03:07:39 06/22/19 22 06/22/2021 COMP. METAB OLIC PANEL (14) sodium 138 mmol/ L 134-14 4 Not Available [facility] ([facility]) [address] [facility] [place], [address], 06/24/2021 03:07:39 06/22/19 22 06/22/2021 COMP. METAB OLIC PANEL (14) potassium 4.0 mmol/ L 3.5-5. 2 Not Available [facility] ([facility]) [address] [facility] [place], [address], 06/24/2021 03:07:39 06/22/19 22 06/22/2021 COMP. METAB OLIC PANEL (14) chloride 101 mmol/ L 96-106 Not Available [facility] ([facility]) [address] [facility] [place], [address], 06/24/2021 03:07:39 06/22/19 22 06/22/2021 COMP. METAB OLIC PANEL (14) carbon dioxide, total 24 mmol/ L 20-29 Not Available [facility] ([facility]) [address] [facility] [place], [address], 06/24/2021 03:07:39 06/22/19 22 06/22/2021 COMP. METAB OLIC PANEL (14) calcium 10.0 mg/dL 8.7-10 .2 Not Available [facility] ([facility]) [address] [facility] [place], [address], 06/24/2021 03:07:39 06/22/19 22 06/22/2021 COMP. METAB OLIC PANEL (14) protein, total 7.5 g/dL 6.0-8. 5 Not Available [facility] ([facility]) [address] [facility] [place], [address], 06/24/2021 03:07:39 06/22/19 22 06/22/2021 COMP. METAB OLIC PANEL (14) albumin 4.6 g/dL 3.8-4. 8 Not Available [facility] ([facility]) [address] [facility], [place], [address], 06/24/2021 03:07:39 06/22/19 22 06/22/2021 COMP. METAB OLIC PANEL (14) globulin, total 2.9 g/dL 1.5-4. 5 Not Available [facility] ([facility]) [address] [facility] [place], [address], 06/24/2021 03:07:39 06/22/19 22 06/22/2021 COMP. METAB OLIC PANEL (14) A/G ratio 1.6 1.2-2. 2 Not Available [facility] ([facility]) [address] [facility] [place], [address], 06/24/2021 03:07:39 06/22/19 22 06/22/2021 COMP. METAB OLIC PANEL (14) bilirubin, total 0.7 mg/dL 0.0-1. 2 Not Available [facility] ([facility]) [address] [facility] [place], [address], 06/24/2021 03:07:39 06/22/19 22 06/22/2021 COMP. METAB OLIC PANEL (14) alkaline phosphatase 58 IU/L 44-121 Not Available [facility] ([facility]) [address] [facility] [place], [address], 06/24/2021 03:07:39 06/22/19 22 06/22/2021 COMP. METAB OLIC PANEL (14) AST (SGOT) 14 IU/L 0-40 Not Available [facility] ([facility]) [address] [facility] [place], [address], 06/24/2021 03:07:39 06/22/19 22 06/22/2021 COMP. METAB OLIC PANEL (14) ALT (SGPT) 8 IU/L 0-32 Not Available [facility] ([facility]) [address] [facility] [place], [address], 06/24/2021 03:07:39 06/22/19 22 06/22/2021 CBC WITH DIFFE RENTI AL/PL ATELE T WBC 5.9 x10e3 /uL 3.4-10 .8 Not Available [facility] ([facility]) [address] [place], [address], 06/24/2021 03:07:38 06/22/19 22 06/22/2021 CBC WITH DIFFE RENTI AL/PL ATELE T RBC 5.07 x10e6 /uL 3.77-5 .28 Not Available [facility] ([facility]) [address] [place], [address], 06/24/2021 03:07:38 06/22/19 22 06/22/2021 CBC WITH DIFFE RENTI AL/PL ATELE T hemoglobin 14.3 g/dL 11.1-1 5.9 Not Available [facility] ([facility]) [address] [facility], [place], [address], 06/24/2021 03:07:38 06/22/19 22 06/22/2021 CBC WITH DIFFE RENTI AL/PL ATELE T hematocrit 44.8 % 34.0-4 6.6 Not Available [facility] ([facility]) [address] [place], [address], 06/24/2021 03:07:38 06/22/19 22 06/22/2021 CBC WITH DIFFE RENTI AL/PL ATELE T MCV 88 fL 79-97 Not Available [facility] ([facility]) [address] [place], [address], 06/24/2021 03:07:38 06/22/19 22 06/22/2021 CBC WITH DIFFE RENTI AL/PL ATELE T MCH 28.2 pg 26.6-3 3.0 Not Available [facility] ([facility]) [address] [place], [address], 06/24/2021 03:07:38 06/22/19 22 06/22/2021 CBC WITH DIFFE RENTI AL/PL ATELE T MCHC 31.9 g/dL 31.5-3 5.7 Not Available [facility] ([facility]) [address] [facility], [place], [address], 06/24/2021 03:07:38 06/22/19 22 06/22/2021 CBC WITH DIFFE RENTI AL/PL ATELE T RDW 13.1 % 11.7-1 5.4 Not Available [facility] ([facility]) [address] [facility], [place], [address], 06/24/2021 03:07:38 06/22/19 22 06/22/2021 CBC WITH DIFFE RENTI AL/PL ATELE T platelets 247 x10e3 /uL 150-45 0 Not Available [facility] ([facility]) [address] [facility], [place], [address], 06/24/2021 03:07:38 06/22/19 22 06/22/2021 CBC WITH DIFFE RENTI AL/PL ATELE T neutrophils 59 % not estab. Not Available [facility] ([facility]) [address] [facility], [place], [address], 06/24/2021 03:07:38 06/22/19 22 06/22/2021 CBC WITH DIFFE RENTI AL/PL ATELE T lymphs 32 % not estab. Not Available [facility] ([facility]) [address] [facility], [place], [address], 06/24/2021 03:07:38 06/22/19 22 06/22/2021 CBC WITH DIFFE RENTI AL/PL ATELE T monocytes 7 % not estab. Not Available [facility] ([facility]) [address] [facility], [place], [address], 06/24/2021 03:07:38 06/22/19 22 06/22/2021 CBC WITH DIFFE RENTI AL/PL ATELE T eos 1 % not estab. Not Available [facility] ([facility]) [address] [place], [address], 06/24/2021 03:07:38 06/22/19 22 06/22/2021 CBC WITH DIFFE RENTI AL/PL ATELE T basos 1 % not estab. Not Available [facility] (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) [address] [place], [address], 06/24/2021 03:07:38 06/22/19 22 06/22/2021 CBC WITH DIFFE RENTI AL/PL ATELE T neutrophils (absolute) 3.5 x10e3 /uL 1.4-7. 0 Not Available [facility] ([facility]) [address] [place], [address], 06/24/2021 03:07:38 06/22/19 22 06/22/2021 CBC WITH DIFFE RENTI AL/PL ATELE T lymphs (absolute) 1.9 x10e3 /uL 0.7-3. 1 Not Available [facility] ([facility]) [address] [place], [address], 06/24/2021 03:07:38 06/22/19 22 06/22/2021 CBC WITH DIFFE RENTI AL/PL ATELE T monocytes(ab solute) 0.4 x10e3 /uL 0.1-0. 9 Not Available [facility] ([facility]) [address] [place], [address], 06/24/2021 03:07:38 06/22/19 22 06/22/2021 CBC WITH DIFFE RENTI AL/PL ATELE T eos (absolute) 0.1 x10e3 /uL 0.0-0. 4 Not Available [facility] ([facility]) [address] [facility], [place], [address], 06/24/2021 03:07:38 06/22/19 22 06/22/2021 CBC WITH DIFFE RENTI AL/PL ATELE T baso (absolute) 0.0 x10e3 /uL 0.0-0. 2 Not Available [facility] ([facility]) [address] [facility], [place], [address], 06/24/2021 03:07:38 06/22/1906/22/2021 CBC WITH DIFFE RENTI AL/PL ATELE T immature granulocytes 0 % not estab. Not Available [facility] ([facility]) [address] [place], [address], 06/24/2021 03:07:38 06/22/19 22 06/22/2021 CBC WITH DIFFE RENTI AL/PL ATELE T immature grans (abs) 0.0 x10e3 /uL 0.0-0. 1 Not Available [facility] (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) [address] [place], [address], 06/24/2021 03:07:38 06/22/19 22 06/22/2021 TSH+F REE T4 TSH 1.570 uIU/m L 0.450- 4.500 Not Available [facility] ([facility]) [address] [place], [address], 06/24/2021 03:07:38 06/22/19 22 06/22/2021 TSH+F REE T4 T4,free(dire ct) 1.47 NG/dL 0.82-1 .77 Not Available [facility] ([facility]) [address] [place], [address], 06/24/2021 03:07:38 06/22/19 22 06/22/2021 FE+TI BC+FE R iron bind.cap.(TI BC) 354 ug/dL 250-45 0 Not Available [facility] ([facility]) [address] [place], [address], 06/24/2021 03:07:37 06/22/19 22 06/22/2021 FE+TI BC+FE R UIBC 278 ug/dL 131-42 5 Not Available [facility] ([facility]) [address] [place], [address], 06/24/2021 03:07:37 06/22/19 22 06/22/2021 FE+TI BC+FE R iron 76 ug/dL 27-159 Not Available [facility] ([facility]) [address] [place], [address], 06/24/2021 03:07:37 06/22/19 22 06/22/2021 FE+TI BC+FE R iron saturation 21 % 15-55 Not Available [facility] ([facility]) [address] [place], [address], 06/24/2021 03:07:37 06/22/19 22 06/22/2021 FE+TI BC+FE R ferritin 24 NG/mL 15-150 Not Available [facility] ([facility]) [address] [place], [address], 06/24/2021 03:07:37 08/13/19 22 08/11/2021 US, thyro id No observ ation record ed. MIG[facility]. [facility] [address], [place], [address], 04/15/2022 21:49:08 02/12/20 22 2022 US, thyro id No observ ation record ed. MIGRATION. [facility] [address], [place], [address], 04/15/2022 21:49:08 02/12/20 22 2022 US, thyro id No observ ation record ed. MIGRATION. [facility] [address], [place], [address], 04/15/2022 21:49:08 08/18/19 23 08/15/2022 US, thyro id No observ ation record ed. [facility] [address], [place], [address], 08/19/2022 16:30:26 12/23/19 23 12/04/2022 derick r monit or No observ ation record ed. [place] [id number], [place], [address], 12/23/2022 16:43:29 Result Notes None recorded. Problems Name Problem SNOMED Code Status Onset Date Resolution Date Notes Provider Name and Address Organization Details Recorded Time Mass of thyroid gland 642839633 Active 2021 Not Available [facility] 3 21:48:28 Benign neoplasm of thyroid gland 65294847 Active 2021 Not Available [facility] 3 21:48:29 Thyroid nodule 019732872 Active 2021 Not Available [facility] 3 21:48:28 Sebaceous cyst of skin 613709231 Active 2021 Not Available [facility] 3 21:48:29 Fatigue 57992220 Active 2021 Not Available [facility] 3 21:48:29 Dominant nodule of thyroid 850772990 Active 2021 Not Available [facility] 3 21:48:29 Goiter 1229926 Active 2022 Geni Whalen CMA null, [facility] 3 09:07:24 Arthropathy of cervical spine facet joint 309767530 Active 2022 ROB Henderson [address] [facility] [address], [place], [address] , [facility] 3 10:39:54 Multinodular goiter 476221302 Active 2022 Telma Ocampo RN null, [facility] 3 12:08:29 Vitamin B12 deficiency (non anemic) 03572936 Active 2022 Telma Ocampo RN null, [facility] 3 12:09:29 Problem Notes None recorded. Procedures Surgical History Date Name Laterality Status Provider Name and Address Organization Details Recorded Time magnetic resonance imaging completed Not Available [facility] 04/15/2022 21:48:10 Biopsy of thyroid completed Not Available [facility] 04/15/2022 21:48:10 Dilation and curettage completed Not Available [facility] 04/15/2022 21:48:10 completed Not Available [place] [id number] 04/15/2022 21:48:10 Imaging Results None recorded. Procedure Notes None recorded. Medical Equipment None Reported. Allergies No known drug allergies Medications Name Sig Start Date Stop Date Status Note LastModified by Organization Details LastModified Time amoxicillin 500 mg capsule 07/24 completed Not Available Not Available Not Available clindamycin HCl 300 mg capsule TAKE ONE CAPSULE BY MOUTH EVERY 6 HOURS UNTIL ALL TAKEN 08/09 completed Not Available Not Available Not Available azithromyci n 250 mg tablet FPD 08/09 completed Not Available Not Available Not Available ibuprofen 800 mg tablet TK 1 T PO Q 6 H PRN P 06/03 completed Not Available Not Available Not Available fluconazole 150 mg tablet TAKE 1 TABLET BY MOUTH 1 TIME 06/03 completed Not Available Not Available Not Available meloxicam 15 mg tablet Take 1 tablet every day by oral route as needed. 2022 active Not Available Not Available Not Avai lable prednisone 20 mg tablet TAKE 3 TABLETS BY MOUTH EVERY DAY FOR 5 DAYS 06/03 completed Not Available Not Available Not Available metronidazo le 500 mg tablet 07/24 completed Not Available Not Available Not Available tramadol 50 mg tablet TK 1 TO 2 TS PO Q 6 H PRN P 08/09 completed Not Available Not Available Not Available amoxicillin 875 mg tablet TAKE 1 TABLET BY MOUTH TWICE DAILY FOR 10 DAYS FOR THROAT INFECTION 06/03 completed Not Available Not Available Not Available cephalexin 500 mg capsule TAKE 1 CAPSULE BY MOUTH EVERY 12 HOURS FOR 10 DAYS 06/03 completed Not Available Not Available Not Available triamcinolo ne acetonide 0.1 % topical ointment APPLY TOPICALLY TO THE AFFECTED AREA EVERY 12 HOURS NEEDED 06/03 completed Not Available Not Available Not Available methylpredn isolone 4 mg tablets in a dose pack FOLLOW PACKAGE DIRECTION S 08/09 completed Not Available Not Available Not Available ondansetron 4 mg disintegrat ing tablet DISSOLVE 1 TABLET ON THE TONGUE EVERY 8 HOURS NEEDED 06/03 completed Not Available Not Available Not Available Boostrix Tdap 2.5 Lf unit-8 mcg-5 Lf/0.5 mL intramuscul ar syringe active Not Available Not Available N ot Available magnesium 12/12 completed Not Available Not Available Not Available Vitamin D 2021 active Not Available Not Available Not Avai lable + DHA OTC tablet daily 08/09 completed Not Available Not Available Not Available Diclegis 10 mg-10 mg tablet,hemalatha yed release 07/24 completed Not Available Not Available Not Available Allergy OTC tablet daily 2019 active Not Available Not Available Not Avai lable Flucelvax Quad (PF) 60 mcg (15 mcg x 4)/0.5 mL IM syringe active Not Available Not Available N ot Available Vitals Date Recorded Body mass index (BMI) Body height Oxygen saturation Oxygen saturation in Arterial blood by Pulse oximetry Heart rate Body temperature Body weight Systolic And Diastolic Provider Name and Address Organization Details Last Updated DateTime 3 23.1 kg/m2 172.72 cm 99 % 99 % 80 /min 97.8 [degF] 72543.0 4 g 105/70 mm[Hg] Not Available [facility] 3 21:48:22 Date Recorded Body mass index (BMI) Body height Oxygen saturation Oxygen saturation in Arterial blood by Pulse oximetry Heart rate Body temperature Body weight Systolic And Diastolic Provider Name and Address Organization Details Last Updated DateTime 2 22.6 kg/m2 172.72 cm 97 % 97 % 90 /min 98 [degF] 97876.8 3 g 98/75 mm[Hg] Not Available [facility] 3 21:48:21 Date Recorded Body height Body mass index (BMI) Body weight Body temperature Heart rate Oxygen saturation Oxygen saturation in Arterial blood by Pulse oximetry Systolic And Diastolic Provider Name and Address Organization Details Last Updated DateTime 3 172.72 cm 22.8 kg/m2 11560.8 6 g 97.6 [degF] 84 /min 99 % 99 % 110/64 mm[Hg] Helena Caballero RN [place] - [facility] 3 10:13:26 Date Recorded Body mass index (BMI) Body height Oxygen saturation Oxygen saturation in Arterial blood by Pulse oximetry Heart rate Respiratory rate Body temperature Body weight Systolic And Diastolic Provider Name and Address Organization Details Last Updated DateTime 2 23 kg/m2 172.72 cm 95 % 95 % 85 /min 16 /min 98.6 [degF] 40100.1 7 g 102/68 mm[Hg] Not Available [facility] 3 21:48:22 Date Recorded Body mass index (BMI) Body height Oxygen saturation Oxygen saturation in Arterial blood by Pulse oximetry Heart rate Body temperature Body weight Systolic And Diastolic Provider Name and Address Organization Details Last Updated DateTime 2 22.8 kg/m2 172.72 cm 100 % 100 % 81 /min 97.7 [degF] 76564.8 6 g 105/65 mm[Hg] Not Available [facility] 3 21:48:22 Social History Question Answer Notes LastModified by Organizat ion Details LastModified Time Tobacco Smoking Status Never Smoker Not Available [facility] 04/15/2022 21:48:07 What Is Your Level Of Caffeine Consumption? Occasional [id number] Information not available 04/15/2022 How Much Tobacco Do You Chew? None [id number] Information not available 04/15/2022 In The 14 Days Before Symptom Onset, Have You Had Close Contact With A Laboratory-confirm ed COVID-19 While That Case Was Ill? No [id number] Information not available 04/15/2022 In The 14 Days Before Symptom Onset, Have You Had Close Contact With A Person Who Is Under Investigation For COVID-19 While That Person Was Ill? No [id number] Information not available 04/15/2022 What Type Of Diet Are You Following? [id number] [id number] Information not available 04/15/2022 Which Illicit Or Recreational Drugs Have You Used? None [id number] Information not available 04/15/2022 Have There Been Any Changes To Your Family Or Social Situation? No [id number] Information not available 04/15/2022 What Is Your Relationship Status? [id number] Information not available 04/15/2022 Do You Use Your Seat Belt Or Car Seat Routinely? Yes [id number] Information not available 04/15/2022 Do You Have Smoke And Carbon Monoxide Detectors In Your Home? Yes MIGRATION.[id number] 2006 Information not available 04/15/2022 How Much Tobacco Do You Smoke? No MIGRATION.[id number] 1737 Information not available 04/15/2022 Do You Use Sunscreen Routinely? Yes MIGRATION.835561 9267 Information not available 04/15/2022 Have You Recently Traveled Abroad? No MIGRATION.344765 9353 Information not available 04/15/2022 Do You Have Any Dietary Restrictions? No MIGRATION.461767 9478 Information not available 04/15/2022 Sex: Unknown Functional Status Question Answer Note LastModified by Organizat ion Details LastModified Time Do you use any illicit or recreational drugs? No MIGRATION.[id number] 4835 Information not available 04/15/2022 Do you or have you ever used any other forms of tobacco or nicotine? No MIGRATION.864957 6644 Information not available 04/15/2022 What is your level of alcohol consumption? Occasional MIGRATION.474289 6804 Information not available 04/15/2022 Do you or have you ever used smokeless tobacco? 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 Never used electronic cigarettes MIGRATION.547624 6582 Information not available 04/15/2022 What is your exercise level? Moderate MIGRATION.984837 6100 Information not available 04/15/2022 Mental Status None recorded. Family History Relationship Description Onset Age of this Age Resolved Age Notes LastModified by Organization Details LastModified Time Maternal Grandfather Parkinson's disease [id number] Not available 04/15/2022 21:48:11 Paternal Grandmother Parkinson's disease MIGRATION.565 [id number] Not available 04/15/2022 21:48:11 Mother Family history of Thyroid disorder MIGRATION.762 [id number] Not available 04/15/2022 21:48:11 Mother Heart disease MIGRATION.224 [id number] Not available 04/15/2022 21:48:11 Mother Hyperlipidem ia MIGRATION.820 [id number] Not available 04/15/2022 21:48:11 Mother Depressive disorder MIGRATION.231 [id number] Not available 04/15/2022 21:48:11 Maternal Grandmother Family history of Thyroid disorder MIGRATION.689 [id number] Not available 04/15/2022 21:48:11 Maternal Grandmother Heart disease MIGRATION.533 [id number] Not available 04/15/2022 21:48:11 Medical History Condition Response SLEEP APNEA N MRSA N ALLERGIES/HAYFEVER N LUNG DISEASE/DISORDER N INSOMNIA N HISTORY OF DRUG ABUSE N RADIATION / CHEMOTHERAPY N COPD N HIGH CHOLESTEROL / HYPERLIPIDEMIA N HYPERTHYROIDISM N BLOOD DISEASES N EAR OR HEARING PROBLEMS N HYPOTHYROIDISM Y SHINGLES N DEPRESSION (INCLUDING POST ) N HAVE YOU BEEN HOSPITALIZED OR SEEN IN [facility] ER IN THE PAST YEAR ? N STROKE/TIA N ULCERS N OBESITY N ANEURYSM N HISTORY WITH COMPLICATIONS WITH ANESTHES IA ? N USE OF BLOOD THINNERS N NO SIGNIFICANT PAST MEDICAL HISTORY N DIABETES, TYPE N PARATHYROID DISEASE N ENT N SEASONAL ALLERGIES Y HEARTBURN / REFLUX N HEPATITIS / LIVER DISEASE N SLEEP DISORDER N HEADACHES/MIGRAINES N SEIZURES/EPILEPSY N CHF N PACEMAKER N DIZZINESS N HEART DISEASE/HEART PROBLEMS N AIDS/HIV N FRACTURES N HYPERTENSION N CANCER: SPECIFY N TOURETTE'S N BLOOD TRANSFUSION N ANESTHESIA COMPLICATIONS N ANEMIA/BLOOD DISORDER N CHRONIC EAR INFECTIONS N AUTOIMMUNE DISEASE N TUBERCULOSIS N Gynecological History Statement/Question Response Menses Monthly N Abnormal Pap N Date of Last Pap 08/15/2018 Obstetrics History GPAL:G 4 P 0 0 1 3 Type Value Spontaneous 1 Living 3 Total 4 Immunizations Vaccine Type Date Status Note Provider Nam e and Address Organization Details Recorded Time Tdap 9 completed Not Available [facility] 04/15/2022 21:49:05 Influenza, split virus, quadrivalent, preservative 9 completed Not Available [facility] 04/15/2022 21:49:06 Past Encounters Encounter ID Performer Location Encounter Start Date Encounter Closed Date Diagnosis/Indication Diagnosis SNOMED-CT Code Diagnosis ICD10 Code Diagnosis IMO Codes Diagnosis Note [id number] ROB Henderson [facility] Internal Med [place] [address] [place] [address] 08/09/2020 00:00:00 08/10/2020 00:29:25 [id number] Lázaro Martinez MD [facility] ENT [place] [address] [place] [address] 06/03/2021 00:00:00 06/03/2021 16:55:56 [id number] Miky Barrera MD [facility] Internal Med [place] [address] [place] [address] 06/10/2021 00:00:00 06/10/2021 23:12:57 [id number] Alessia Heath MD [facility] Endo [place] [address] [place] [address] 07/04/2021 00:00:00 07/04/2021 21:54:51 [id number] Miky Barrera MD [facility] Internal Med [place] [address] [place] [address] 08/22/2021 00:00:00 09/14/2021 17:01:21 [id number] Alessia Heath MD [facility] End[facility] [place] [address] [place] [address] 12/12/2021 00:00:00 12/12/2021 13:45:32 [id number] Alessia Heath MD [facility] [place] [address] [place] [address] 03/13/2022 00:00:00 03/13/2022 17:57:02 [id number] ROB Henderson [facility] [place] [address] [place] [address] 08/21/2022 10:00:52 08/21/2022 10:44:02 Adult health examination 604945773 Z00.00 well exam completed. CBC lab due Cholesterol screening 27 [id number] Z13.220 fasting lipids due, these were not completed with Endocrine Arthropath y of cervical spine facet joint [id number] M47.812 trial of meloxicam 15mg daily w/food PRN . Health Concerns Section Related Observation LastModified by Organization Detai ls LastModified Time None Recorded Concern Status LastModified by Organization Details LastModified Time None Recorded Advance Directives Directive None Recorded Payers Insurance Date Sequence Insurance Name Policy Number Policy Lee Covered Member ID Lee Member ID Guarantor Name 09/15/2022 1 COUNTS INCLUDE 234 BEDS AT [facility] OPTIONS (PPO) [id number] Francis Gutierres [id number] SOLER Nona Gutierres Notes Date Note Type Note Provider Name and Address Organization Details Recorded Time 08/21/2022 text/html Generic HPI TemplateReported by Patient wellness ROB Henderson [address], [place], [address], [place] [facility] 09/14/2022 21:42:53 OBGyn Episode No OBEpisode recorded.
--- OUTSIDE RECORDS SUMMARY | 2024-11-15 12:33 | XMS_ITS | Clinical Summary ---
Author Organization [facility] [email or web address] Address [address] [address] Care Team Providers Care Marine Consultant Name Role Phone Unavailable Primary Care Provider Unavailabl e Source Comments [facility] [email or web address],non-owned Affiliates and Associated Physician Practices is amultiple site organization consisting of ambulatory clinics and hospital sitesin [place], [place]. This disclosure is being madepursuant to the Care Everywhere program and may not contain all information available regarding this patient. Last updated 17.[facility] [email or web address] Allergies No known active allergies Medications * Be aware that medications may not be up to date on this document. Alwaysverify current medications with the patient. Vit-DSS-Fe Fum-FA ( vitamin with iron) tablet Take 1 (one) tablet by mouth once daily Active Doxylamine Succinate, Sleep, (UNISOM PO) Take 1 tablet by mouth once daily Active Family History Medical History Relation Name Comments Asthma Brother 1 Cancer - Skin, Non Melanoma Mother Other - Cardiac Mother Relation Name Status Comments Brother 1 Alive Brother 2 Alive Father Alive Mother Alive Sister Alive Social History Tobacco Use Types Packs/Day Years Used Date Smoking Tobacco: Never Smokeless Tobacco: Never Tobacco Cessation:Counseling Given: Not Answered Alcohol Use Standard Drinks/Week Comments Not Currently 0 (1 standard drink = 0.6 oz pur e alcohol) Comments No Sex and Gender Information Value Date Recorded Sex Assigned at Not on file Legal Sex Female 2:33 PM 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 RELATIONS STUDIES DIRECTOR Gender Identity Not on file Sexual Orientation Not on file Last Filed Vital Signs Vital Sign Reading Time Taken Comments Blood Pressure 102/66 03/10/2023 2:08 PM PUBLIC RELATIONS STUDIES DIRECTOR Pulse 91 03/10/2023 2:08 PM PUBLIC RELATIONS STUDIES DIRECTOR Temperature 36.7 C (98 F) 02/06/2021 4:00 PM PUBLIC RELATIONS STUDIES DIRECTOR Respiratory Rate 16 02/06/2021 4:00 PM PUBLIC RELATIONS STUDIES DIRECTOR Oxygen Saturation 98% 02/06/2021 4:00 PM PUBLIC RELATIONS STUDIES DIRECTOR Inhaled Oxygen Concentration - - Weight 77.8 kg (171 lb 9.6 oz) 03/10/2023 2:08 P M PUBLIC RELATIONS STUDIES DIRECTOR Height 172.7 cm (5' 8) 03/10/2023 2:08 PM PUBLIC RELATIONS STUDIES DIRECTOR Body Mass Index 26.09 03/10/2023 2:08 PM PUBLIC RELATIONS STUDIES DIRECTOR Plan of Treatment Health Maintenance Due Date Last Done Comments HEPATITIS C SCREENING 02/06/2006 DTAP/TDAP/TD VACCINES (1 - Tdap) 02/10/2007 HEPATITIS B VACCINE (1 of 3 - 19+ 3-dose series) 02/10/2007 PAP SMEAR 02/10/2009 HPV VACCINE (1 - 3-dose SCDM series) 02/10/2015 DEPRESSION SCREENING 02/16/2024 COVID-19 VACCINE (1 - season) 2024 INFLUENZA VACCINE (#1) 2024 , 11/27/2018, 12/22/2017, Additional history exists ZOSTER VACCINE (1 of 2) 02/10/2038 HIV SCREENING Completed 10/05/2022 HIB VACCINE Aged Out No longer eligi ble based on patient's age to complete this topic MENINGOCOCCAL (Group B) VACCINE SHARED DECISION-MAKING Aged Out No longer eligible based on patient's age to complete this topic MENINGOCOCCAL GROUPS A/C/Y/W VACCINE Aged Out No longer eligible based on patient's age to complete this topic PNEUMOCOCCAL VACCINE Aged Out No long er eligible based on patient's age to complete this topic Insurance [facility]
== END 2025-02-13 23:59 | disposition home or self-care (01) ==
LOC: ANHLAB 12:28
PROVIDERS: PCP Physician Assistant; Visit Provider Advanced Practice Midwife
DX: O20.0 Threatened abortion (principal); Z3A.00 Weeks of gestation of pregnancy not specified
CPT/HCPCS: 36415; 84702